=== PATIENT | female | born 1955 | race African-American/Black ===

== ENCOUNTER 2018-01-10 18:01 | Inpatient (IN) | payer MEDICAID ==
[~2018-01-10] VITALS: Ht 165.1 cm; Wt 121.6 kg
[~2018-01-10 18:01] MED LIST: AMLODIPINE PO; OXYBUTYNIN PO; SIMVISTATIN PO
[2018-01-10] MEDS ORDERED: SODIUM CHLORIDE 0.9% 1000ML BAG (SEPSIS BOLUS) IV ONE (18:30)
[2018-01-10 19:03] LABS: BG BASE EXCESS -22.6 mmol/L (-2.0-2.0); BG CARBOXYHEMOGLOBIN 0.4 % (0.5-1.5); BG DEOXYHEMOGLOBIN 3.3 % (0.0-5.0); BG FRACTION INSPIRED OXYGEN 28; BG HCO3 ACT 3.8 mmol/L (22.0-26.0); BG METHEMOGLOBIN 0.5 % (0.0-1.5); BG OXYGEN SATURATION 96.7 % (92.0-98.5); BG OXYHEMOGLOBIN 95.8 % (94.0-97.0); BG PCO2 11.5 mmHg (35.0-45.0); BG PH 7.134 (7.350-7.450); BG PO2 102.8 mmHg (75.0-100.0); BG SAMPLE SITE RIGHT RADIAL; BG TOTAL HEMOGLOBIN 16.4 g/dL (12.0-18.0); BG VENT MODE NASAL CANNULA
[2018-01-10] MEDS ORDERED: SODIUM CHLORIDE 0.9% 1,000 ML IV ONE (19:05)
[2018-01-10] MEDS ORDERED: INSULIN REGULAR (DRIP) 100 UNITS in SODIUM CHLORIDE 0.9% 99 ML IV ONE (19:15)
[2018-01-10] MEDS ORDERED: INSULIN REGULAR (DRIP) 100 UNITS in SODIUM CHLORIDE 0.9% 100 ML IV ONE (19:15)
[2018-01-10 19:41] LABS: HEMATOCRIT. 52.6 % (36.0-48.0); HEMOGLOBIN. 15.5 g/dL (12.0-16.0); MEAN CORPUSCULAR HEMOGLOBIN 27.5 pg (28.0-32.0); MEAN CORPUSCULAR VOLUME 93.4 fL (81.0-99.0); MEAN PLATELET VOLUME 11.3 fl (7.4-10.4); PLATELET 260 x1000/uL (130-400); RED BLOOD CELL COUNT 5.63 mill/uL (4.2-5.4); RED CELL DISTRIBUTION WIDTH 17.9 % (11.6-14.6)
[2018-01-10 19:48] LABS: PROTHROMBIN TIME 10.4 sec (9.1-11.1)
[2018-01-10 19:51] LABS: CHLORIDE 99 mEq/L (98-107); ETHANOL BLOOD < 10 mg/dL
[2018-01-10 19:57] LABS: PHOSPHORUS 7.8 mg/dL (2.5-4.9)
[2018-01-10 20:00] LABS: PLATELET ESTIMATE NORMAL
[2018-01-10] MEDS ORDERED: NOREPINEPHRINE 4 MG in DEXT 5% WATER 246 ML IV ONE (21:00)
[2018-01-10] MEDS ORDERED: SODIUM BICARBONATE 8.4% 1 MEQ/ML 50ML SYR IV ONE (21:00)
[2018-01-10 21:03] LABS: BETA HYDROXYBUTYRATE 13.5 mMol/L (0.0-0.3)
[2018-01-10] MEDS ORDERED: PIPERACILLIN/TAZ 3.375G PREMIX 50 ML IV ONE (21:15)
[2018-01-10 22:48] LABS: CLARITY URINE CLEAR (CLEAR); COLOR URINE YELLOW (YELLOW); KETONES URINE 3+ (NEGATIVE); LEUKOCYTE ESTERASE URINE NEGATIVE (NEGATIVE); NITRITE URINE NEGATIVE (NEGATIVE); OCCULT BLOOD URINE 1+ (NEGATIVE); PROTEIN URINE 1+ (NEGATIVE); SPECIFIC GRAVITY URINE 1.023 (1.005-1.030); UROBILINOGEN URINE 0.2 E.U./dL (0.2-1.0)
[2018-01-10 23:00] VITALS: BP 145/105
[2018-01-10 23:01] LABS: *AMPHETAMINES SCREEN URINE NEGATIVE (NEGATIVE); *BARBITURATES SCREEN URINE NEGATIVE (NEGATIVE); *BENZODIAZEPINES SCREEN URINE NEGATIVE (NEGATIVE); *COCAINE SCREEN URINE NEGATIVE (NEGATIVE); CANNABINOID URINE SCREEN NEGATIVE (NEGATIVE); METHADONE URINE SCREEN NEGATIVE (NEGATIVE); OPIATES URINE SCREEN NEGATIVE (NEGATIVE); PHENCYCLIDINE URINE SCREEN NEGATIVE (NEGATIVE)
[2018-01-10 23:15] VITALS: BP 146/67
[2018-01-10] MEDS ORDERED: CLONIDINE 0.1MG TABLET PO PRN (23:15)
[2018-01-10] MEDS ORDERED: INSULIN REGULAR (DRIP) 100 UNITS in SODIUM CHLORIDE 0.9% 100 ML IV SCH (23:15)
[2018-01-10] MEDS ORDERED: ONDANSETRON HCL 4MG/2ML INJ IV PRN (23:15)
[2018-01-10] MEDS ORDERED: IPRATROPIUM/ALBUTEROL 0.5-3(2.5)MG/3ML NEB INH PRN (23:15)
[2018-01-10] MEDS ORDERED: DOCUSATE SODIUM 100MG CAPSULE PO PRN (23:15)
[2018-01-10] MEDS ORDERED: MAGNESIUM/ALUMINUM HYDROXIDE/SIMETHICONE 30ML UDC PO PRN (23:15)
[2018-01-10 23:25] VITALS: BP 146/67
[2018-01-10 23:30] VITALS: BP 142/85
[2018-01-10] MEDS ORDERED: DEXTROSE 50% WATER 50ML SYRINGE IV PRN ×2 (23:30)
[2018-01-10] MEDS ORDERED: DEXT 5%/0.9% NACL 1,000 ML IV PRN (23:30)
[2018-01-10] MEDS ORDERED: DEXT 5%/0.9% NACL KCL 20MEQ/L 1,000 ML IV PRN (23:30)
[2018-01-10 23:45] VITALS: BP 140/77
[2018-01-11] VITALS (42 sets, daily range): BP systolic 84–183; BP diastolic 25–127
[2018-01-11] MEDS ORDERED: INSULIN REGULAR (DRIP) 100 UNITS in SODIUM CHLORIDE 0.9% 100 ML IV SCH ×2
[2018-01-11] MEDS: SODIUM CHLORIDE 0.9% 1,000 ML IV SCH ×2 (00:45→06:53)
[2018-01-11] MEDS: BLOOD SUGAR DIAGNOSTIC STRIP TEST SCH ×23 (01:00→23:00)
[2018-01-11] MEDS: DEXT 5%/0.45% NACL 1000ML 1,000 ML IV SCH ×2 (04:00→09:12)
[2018-01-11] MEDS: PIPERACILLIN/TAZ 3.375G PREMIX 50 ML IV SCH ×3 (05:58→22:48)
[2018-01-11 06:00] LABS: BASOPHILS % 0.2 % (0.0-2.0); HEMATOCRIT. 46.8 % (36.0-48.0); HEMOGLOBIN. 14.6 g/dL (12.0-16.0); LYMPHOCYTES % 9.9 % (20.0-50.0); MEAN CORPUSCULAR HEMOGLOBIN 27.3 pg (28.0-32.0); MEAN CORPUSCULAR VOLUME 87.3 fL (81.0-99.0); MEAN PLATELET VOLUME 10.9 fl (7.4-10.4); MONOCYTES % 7.1 % (2.0-8.0); NEUTROPHILS % 82.8 % (40.0-76.0); PLATELET 179 x1000/uL (130-400); RED BLOOD CELL COUNT 5.36 mill/uL (4.2-5.4); RED CELL DISTRIBUTION WIDTH 15.8 % (11.6-14.6)
[2018-01-11] MEDS: AMLODIPINE 5MG TABLET PO SCH ×2 (09:15→20:57)
[2018-01-11] MEDS: ENOXAPARIN 40MG/0.4ML SYR SUBCUT SCH (09:17)
[2018-01-11] MEDS ORDERED: HALOPERIDOL LACTATE 5MG/ML VIAL IM PRN (16:30)
[2018-01-11] MEDS: LORAZEPAM 2MG/ML CPJ IV PRN (20:57)
[2018-01-11] MEDS: RISPERIDONE 1MG TABLET PO SCH (21:00)
[2018-01-11 22:43] LABS: VITAMIN B12 SERUM 330 pg/mL (211-911)
[2018-01-12] VITALS (30 sets, daily range): BP systolic 79–162; BP diastolic 44–107
[2018-01-12] MEDS: BLOOD SUGAR DIAGNOSTIC STRIP TEST SCH ×3 (01:00→02:00)
[2018-01-12] MEDS ORDERED: DEXT 5%/0.9% NACL KCL 20MEQ/L 1,000 ML IV SCH (04:00)
[2018-01-12] MEDS: PIPERACILLIN/TAZ 3.375G PREMIX 50 ML IV SCH ×3 (05:48→22:32)
[2018-01-12] MEDS: AMLODIPINE 5MG TABLET PO SCH ×2 (09:28→21:00)
[2018-01-12] MEDS: RISPERIDONE 1MG TABLET PO SCH ×2 (09:28→22:32)
[2018-01-12] MEDS: ENOXAPARIN 40MG/0.4ML SYR SUBCUT SCH (09:29)
[2018-01-12] MEDS: POTASSIUM CHLORIDE INJ 40 MEQ in DEXT 5%/0.9% NACL 1,000 ML IV SCH ×2 (09:30→16:26)
[2018-01-12] MEDS: LORAZEPAM 2MG/ML CPJ IV PRN ×2 (09:34→16:26)
[2018-01-12 16:38] LABS: BASOPHILS % 0.7 % (0.0-2.0); EOSINOPHILS % 0.1 % (0.0-5.0); HEMATOCRIT. 42.8 % (36.0-48.0); HEMOGLOBIN. 14.1 g/dL (12.0-16.0); LYMPHOCYTES % 20.6 % (20.0-50.0); MEAN CORPUSCULAR HEMOGLOBIN 28.1 pg (28.0-32.0); MEAN CORPUSCULAR VOLUME 85.7 fL (81.0-99.0); MEAN PLATELET VOLUME 10.3 fl (7.4-10.4); MONOCYTES % 9.1 % (2.0-8.0); NEUTROPHILS % 69.5 % (40.0-76.0); PLATELET 162 x1000/uL (130-400); RED CELL DISTRIBUTION WIDTH 15.9 % (11.6-14.6)
[2018-01-12 16:54] LABS: CHLORIDE 125 mEq/L (98-107)
[2018-01-12 16:58] LABS: PHOSPHORUS 1.2 mg/dL (2.5-4.9)
[2018-01-12] MEDS ORDERED: DEXT 5%/0.45% NACL KCL 40MEQ/L 1,000 ML IV SCH ×2 (19:00→22:30)
[2018-01-12] MEDS ORDERED: POTASSIUM PHOS,M-BASIC-D-BASIC 20 MMOL in DEXT 5% WATER 243.3333 ML IV ONE (20:00)
[2018-01-13] VITALS (29 sets, daily range): BP systolic 87–185; BP diastolic 41–133
[2018-01-13 01:18] LABS: CHLORIDE 127 mEq/L (98-107)
[2018-01-13 05:47] LABS: BASOPHILS % 0.4 % (0.0-2.0); EOSINOPHILS % 0.1 % (0.0-5.0); HEMATOCRIT. 40.4 % (36.0-48.0); HEMOGLOBIN. 13.1 g/dL (12.0-16.0); LYMPHOCYTES % 22.7 % (20.0-50.0); MEAN CORPUSCULAR VOLUME 86.3 fL (81.0-99.0); MEAN PLATELET VOLUME 10.3 fl (7.4-10.4); MONOCYTES % 10.8 % (2.0-8.0); PLATELET 103 x1000/uL (130-400); RED BLOOD CELL COUNT 4.68 mill/uL (4.2-5.4); RED CELL DISTRIBUTION WIDTH 16.3 % (11.6-14.6)
[2018-01-13] MEDS: PIPERACILLIN/TAZ 3.375G PREMIX 50 ML IV SCH (06:12)
[2018-01-13 06:16] LABS: CHLORIDE 127 mEq/L (98-107)
[2018-01-13] MEDS: BLOOD SUGAR DIAGNOSTIC STRIP TEST SCH ×3 (08:10→20:59)
[2018-01-13] MEDS: AMLODIPINE 5MG TABLET PO SCH ×2 (08:45→20:50)
[2018-01-13] MEDS: ENOXAPARIN 40MG/0.4ML SYR SUBCUT SCH (08:46)
[2018-01-13] MEDS: RISPERIDONE 1MG TABLET PO SCH (08:47)
[2018-01-13 09:51] LABS: CHLORIDE 126 mEq/L (98-107)
[2018-01-13] MEDS ORDERED: DEXTROSE 50% WATER 50ML SYRINGE IV PRN (12:00)
[2018-01-13] MEDS: INSULIN LISPRO 100 UNITS/ML SUBCUT SCH ×3 (12:00→20:52)
[2018-01-13] MEDS: ACETAMINOPHEN 325MG TABLET PO PRN (12:02)
[2018-01-13] MEDS: INSULIN GLARGINE UD 100 UNITS/ML SYR SUBCUT SCH ×2 (13:00→20:52)
[2018-01-13 13:15] LABS: CHLORIDE 127 mEq/L (98-107)
[2018-01-13] MEDS: SODIUM CHLORIDE 0.45% 1,000 ML IV SCH (17:36)
[2018-01-13 18:55] LABS: BG BASE EXCESS -10.2 mmol/L (-2.0-2.0); BG FRACTION INSPIRED OXYGEN 21; BG HCO3 ACT 11.5 mmol/L (22.0-26.0); BG METHEMOGLOBIN 0.1 % (0.0-1.5); BG OXYHEMOGLOBIN 95.9 % (94.0-97.0); BG PCO2 17.6 mmHg (35.0-45.0); BG PH 7.432 (7.350-7.450); BG PO2 86.6 mmHg (75.0-100.0); BG SAMPLE SITE RIGHT RADIAL; BG TOTAL HEMOGLOBIN 13.1 g/dL (12.0-18.0); BG VENT MODE ROOM AIR
[2018-01-13] MEDS: HYDROCODONE/ACETAMINOPHEN 5/325MG TABLET PO PRN (20:49)
[2018-01-13] MEDS: ENOXAPARIN 30MG/0.3ML SYR SUBCUT SCH (20:50)
[2018-01-14] VITALS (15 sets, daily range): BP systolic 112–148; BP diastolic 58–98
[2018-01-14 05:16] LABS: BASOPHILS % 0.4 % (0.0-2.0); EOSINOPHILS % 0.5 % (0.0-5.0); HEMATOCRIT. 39.3 % (36.0-48.0); HEMOGLOBIN. 12.7 g/dL (12.0-16.0); LYMPHOCYTES % 28.4 % (20.0-50.0); MEAN CORPUSCULAR HEMOGLOBIN 27.6 pg (28.0-32.0); MEAN CORPUSCULAR VOLUME 85.6 fL (81.0-99.0); MEAN PLATELET VOLUME 10.6 fl (7.4-10.4); MONOCYTES % 10.8 % (2.0-8.0); NEUTROPHILS % 59.9 % (40.0-76.0); PLATELET 153 x1000/uL (130-400); RED BLOOD CELL COUNT 4.59 mill/uL (4.2-5.4); RED CELL DISTRIBUTION WIDTH 15.6 % (11.6-14.6)
[2018-01-14 05:21] LABS: CHLORIDE 121 mEq/L (98-107)
[2018-01-14 05:27] LABS: PHOSPHORUS 2.7 mg/dL (2.5-4.9)
[2018-01-14 05:33] LABS: BETA HYDROXYBUTYRATE 0.3 mMol/L (0.0-0.3)
[2018-01-14] MEDS: INSULIN LISPRO 100 UNITS/ML SUBCUT SCH ×4 (06:16→20:26)
[2018-01-14] MEDS: BLOOD SUGAR DIAGNOSTIC STRIP TEST SCH ×4 (06:17→20:21)
[2018-01-14] MEDS: SODIUM CHLORIDE 0.45% 1,000 ML IV SCH (07:26)
[2018-01-14] MEDS: HYDROCODONE/ACETAMINOPHEN 5/325MG TABLET PO PRN (07:26)
[2018-01-14] MEDS: ENOXAPARIN 30MG/0.3ML SYR SUBCUT SCH (09:03)
[2018-01-14] MEDS: AMLODIPINE 5MG TABLET PO SCH ×2 (09:03→20:14)
[2018-01-14] MEDS: INSULIN GLARGINE UD 100 UNITS/ML SYR SUBCUT SCH ×2 (09:05→21:40)
[2018-01-14] MEDS ORDERED: MAGNESIUM 2 G PREMIX 50 ML IV NR (11:00)
[2018-01-14] MEDS ORDERED: MAGNESIUM OXIDE 400MG TABLET PO SCH (11:30)
[2018-01-14] MEDS ORDERED: GABA-290 PO (17:06)
[2018-01-14] MEDS ORDERED: ASPI-1159 PO (17:06)
[2018-01-14] MEDS: LORAZEPAM 1MG TABLET PO PRN (18:11)
[2018-01-14] MEDS: RISPERIDONE 1MG TABLET PO SCH (20:13)
[2018-01-14] MEDS: ENOXAPARIN 40MG/0.4ML SYR SUBCUT SCH (20:14)
[2018-01-15] VITALS (7 sets, daily range): BP systolic 90–140; BP diastolic 60–108
[2018-01-15] MEDS: BLOOD SUGAR DIAGNOSTIC STRIP TEST SCH ×4 (06:48→20:45)
[2018-01-15] MEDS: RISPERIDONE 1MG TABLET PO SCH ×2 (10:09→20:36)
[2018-01-15] MEDS: AMLODIPINE 5MG TABLET PO SCH ×2 (10:09→20:36)
[2018-01-15] MEDS: ENOXAPARIN 40MG/0.4ML SYR SUBCUT SCH ×2 (10:10→20:36)
[2018-01-15] MEDS: INSULIN LISPRO 100 UNITS/ML SUBCUT SCH ×4 (10:13→20:53)
[2018-01-15] MEDS: INSULIN GLARGINE UD 100 UNITS/ML SYR SUBCUT SCH ×2 (10:14→21:02)
[2018-01-15] MEDS ORDERED: MAGNESIUM 2 G PREMIX 50 ML IV SCH (15:00)
[2018-01-15] MEDS: LORAZEPAM 1MG TABLET PO PRN (20:51)
[2018-01-16] VITALS (7 sets, daily range): BP systolic 105–138; BP diastolic 57–80
[2018-01-16] MEDS: BLOOD SUGAR DIAGNOSTIC STRIP TEST SCH ×5 (06:14→21:00)
[2018-01-16 07:19] LABS: BASOPHILS % 0.4 % (0.0-2.0); EOSINOPHILS % 0.3 % (0.0-5.0); HEMATOCRIT. 37.7 % (36.0-48.0); HEMOGLOBIN. 12.4 g/dL (12.0-16.0); LYMPHOCYTES % 36.9 % (20.0-50.0); MEAN CORPUSCULAR HEMOGLOBIN 27.8 pg (28.0-32.0); MEAN CORPUSCULAR VOLUME 84.6 fL (81.0-99.0); MONOCYTES % 13.7 % (2.0-8.0); NEUTROPHILS % 48.7 % (40.0-76.0); PLATELET 183 x1000/uL (130-400); RED BLOOD CELL COUNT 4.45 mill/uL (4.2-5.4); RED CELL DISTRIBUTION WIDTH 15.8 % (11.6-14.6)
[2018-01-16 07:31] LABS: CHLORIDE 118 mEq/L (98-107)
[2018-01-16 07:44] LABS: AMYLASE 41 IU/L (25-115); PHOSPHORUS 3.5 mg/dL (2.5-4.9)
[2018-01-16] MEDS: INSULIN LISPRO 100 UNITS/ML SUBCUT SCH ×4 (08:10→21:00)
[2018-01-16] MEDS: RISPERIDONE 1MG TABLET PO SCH ×2 (09:01→23:45)
[2018-01-16] MEDS: AMLODIPINE 5MG TABLET PO SCH ×2 (09:01→23:45)
[2018-01-16] MEDS: ENOXAPARIN 40MG/0.4ML SYR SUBCUT SCH ×2 (09:02→23:49)
[2018-01-16] MEDS: PANTOPRAZOLE SODIUM 40 MG/VIAL IV SCH (09:03)
[2018-01-16] MEDS: CYANOCOBALAMIN 1000MCG TABLET PO SCH (10:23)
[2018-01-16] MEDS: DIATR MEGLU/DIATRIZOATE SOLN 30ML PO NR ×2 (10:23→12:05)
[2018-01-16] MEDS: INSULIN GLARGINE UD 100 UNITS/ML SYR SUBCUT SCH ×2 (10:28→23:49)
[2018-01-16] MEDS ORDERED: DEXTROSE 50% WATER 50ML SYRINGE IV PRN (19:15)
[2018-01-17] VITALS: BP 101/66
[2018-01-17 04:00] VITALS: BP 121/85
[2018-01-17 04:13] LABS: MICROALBUMIN RANDOM URINE 186.9 ug/mL (Not Estab.)
[2018-01-17] MEDS: BLOOD SUGAR DIAGNOSTIC STRIP TEST SCH ×8 (07:40→21:50)
[2018-01-17 08:00] VITALS: BP 111/62
[2018-01-17] MEDS: INSULIN LISPRO 100 UNITS/ML SUBCUT SCH ×8 (08:10→21:51)
[2018-01-17] MEDS: PANTOPRAZOLE SODIUM 40 MG/VIAL IV SCH (09:00)
[2018-01-17] MEDS: ENOXAPARIN 40MG/0.4ML SYR SUBCUT SCH ×2 (09:08→21:50)
[2018-01-17] MEDS: AMLODIPINE 5MG TABLET PO SCH ×2 (09:08→21:49)
[2018-01-17] MEDS: RISPERIDONE 1MG TABLET PO SCH ×2 (09:09→21:49)
[2018-01-17] MEDS: CYANOCOBALAMIN 1000MCG TABLET PO SCH (09:09)
[2018-01-17 12:00] VITALS: BP 91/56
[2018-01-17 16:00] VITALS: BP 124/63
[2018-01-17 20:00] VITALS: BP 125/65
[2018-01-17] MEDS: INSULIN GLARGINE UD 100 UNITS/ML SYR SUBCUT SCH (21:50)
[2018-01-18] VITALS: BP 156/78
[2018-01-18 04:00] VITALS: BP 122/68
[2018-01-18] MEDS: BLOOD SUGAR DIAGNOSTIC STRIP TEST SCH ×4 (05:20→12:20)
[2018-01-18] MEDS: ACETAMINOPHEN 325MG TABLET PO PRN (05:31)
[2018-01-18 08:00] VITALS: BP 115/57
[2018-01-18] MEDS: INSULIN LISPRO 100 UNITS/ML SUBCUT SCH ×3 (08:10→13:54)
[2018-01-18] MEDS: CYANOCOBALAMIN 1000MCG TABLET PO SCH (08:10)
[2018-01-18] MEDS: PANTOPRAZOLE SODIUM 40 MG/VIAL IV SCH (09:00)
[2018-01-18] MEDS: AMLODIPINE 5MG TABLET PO SCH (09:53)
[2018-01-18] MEDS: RISPERIDONE 1MG TABLET PO SCH (09:53)
[2018-01-18] MEDS: ENOXAPARIN 40MG/0.4ML SYR SUBCUT SCH (09:54)
[2018-01-18 12:00] VITALS: BP 117/66
[2018-01-18 16:00] VITALS: BP 114/54
== END 2018-01-18 16:47 | disposition left against medical advice (07) | DRG 241 ==
LOC: ER 18:01 → EDBEDREQ 18:39 → MICUSO 19:06 → EDBEDREQ 19:09 → ENRESERV 20:25 → MICUSO 01-12 10:57 → 7WST 01-14 14:38
PROVIDERS: ADMIT Internal Medicine; ATTEND Internal Medicine
DX: K29.70 Gastritis, unspecified, without bleeding (principal); N17.0 Acute kidney failure with tubular necrosis; G92 Toxic encephalopathy; K85.90 Acute pancreatitis without necrosis or infection, unspecified; E10.10 Type 1 diabetes mellitus with ketoacidosis without coma; E87.0 Hyperosmolality and hypernatremia; E83.41 Hypermagnesemia; I11.0 Hypertensive heart disease with heart failure; I50.9 Heart failure, unspecified; E88.81 Metabolic syndrome and other insulin resistance; Z53.21 Procedure and treatment not carried out due to patient leaving prior to being seen by health care provider; E83.39 Other disorders of phosphorus metabolism; E78.5 Hyperlipidemia, unspecified; R80.9 Proteinuria, unspecified; E86.0 Dehydration; E87.5 Hyperkalemia; E66.01 Morbid (severe) obesity due to excess calories; E78.00 Pure hypercholesterolemia, unspecified; Z53.20 Procedure and treatment not carried out because of patient's decision for unspecified reasons; Z88.0 Allergy status to penicillin; Z90.49 Acquired absence of other specified parts of digestive tract; Z98.891 History of uterine scar from previous surgery; Z68.41 Body mass index [BMI] 40.0-44.9, adult
CPT/HCPCS: 36415; 36600; 70551; 71045; 76700; 80048; 80061; 80076; 80305; 82010; 82043; 82140; 82150; 82375; 82550; 82553; 82570; 82607; 82805; 82962; 83036; 83605; 83735; 83880; 83935; 84100; 84145; 84300; 84443; 84484; 93005; 93970; 97110; 97116; 97162; 97530; 99285; A6261; C1893; C9113; G0482; J1650; J1815; J2060; J2405; J2543; J3475; J3480; J3490; J7030; J7042; J7050; J7060; Q9963; A4315